=== PATIENT | female | born 1955 | race Caucasian/White ===

== ENCOUNTER → 2017-02-13 | Outpatient (CLI) | payer MEDICARE ==
[~2017-02-13] MED LIST: LIDOCAINE 1%/EPI 1:100,000 20 ML VIAL. ONE
== END | disposition home or self-care (01) ==
LOC: EDBD 11:21 → PCVCINTER 11:21
PROVIDERS: ATTEND Internal Medicine
DX: I63.9 Cerebral infarction, unspecified (principal); G47.30 Sleep apnea, unspecified; E78.5 Hyperlipidemia, unspecified; Z87.891 Personal history of nicotine dependence; Z88.0 Allergy status to penicillin
CPT/HCPCS: 33282; C1764; J3490